=== PATIENT | male | born 1955 | race Caucasian/White ===

== ENCOUNTER 2020-10-10 09:32 | Emergency (ER) | payer BC ==
[2020-10-10] MEDS ORDERED: Adenosine 6 MG/2 ML SDV ONE (09:47)
[2020-10-10] MEDS ORDERED: Adenosine 12 MG/4 ML SDV ONE (09:47)
[2020-10-10] MEDS ORDERED: Diltiazem 50 MG/10 ML SDV IVPUSH ONE ×2 (09:53→10:21)
--- NOTE | 2020-10-10 09:54 | EDM.PDOC ---
ED HPI GENERAL MEDICAL PROBLEM - General Chief Complaint: Cardiovascular Problem Stated Complaint: SOB Time Seen by Provider: 10/10/20 09:43 - History of Present Illness INITIAL COMMENTS - FREE TEXT/NARRATIVE: 65-year-old male presents the emergency room with shortness of breath. Patient has had intermittent bouts of shortness of breath however this episode has been going on for a couple of days. He really does not have any chest pain with this and has not noticed any palpitations. Interestingly when he was hooked up to the monitor he is in what appears to be a sinus tach rate in the 150s. Besides some mild shortness of breath is otherwise symptom-free is not having any nausea or vomiting. Patient is an ex-smoker he quit about 6 years ago at which time he had a 5 vessel bypass it is unclear if the patient had a he art attack. Patient is on multiple medications he is not sure what and he has not taken them for several months because his regular doctor will not refill them as the patient has not been in for a recent visit. Patient works 6 months out of the year and does not have insurance the other 6 months. 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 - Related Data Allergies Allergy/AdvReac Type Severity Reaction Status Date / Time No Known Allergies Allergy Verified 10/10/20 09:55 ED ROS GENERAL - Review of Systems Review Of Systems: See Below Constitutional: Reports: No Symptoms HEENT: Reports: No Symptoms Respiratory: Reports: Shortness of Breath Cardiovascular: Reports: Dyspnea on Exertion. Denies: Chest Pain, Palpitations Endocrine: Reports: No Symptoms GI/Abdominal: Reports: No Symptoms : Reports: No Symptoms Musculoskeletal: Reports: No Symptoms Skin: Reports: No Symptoms Neurological: Reports: No Symptoms Psychiatric: Reports: No Symptoms Hematologic/Lymphatic: Reports: No Symptoms ED EXAM, GENERAL - Physical Exam Exam: See Below Exam Limited By: No Limitations General Appearance: Alert, No Apparent Distress Head: Atraumatic, Normocephalic Neck: Normal Inspection, Supple, Non-Tender, Full Range of Motion Respiratory/Chest: No Respiratory Distress, Lungs Clear, Normal Breath Sounds Cardiovascular: No Edema, No Murmur, Tachycardia GI/Abdominal: Normal Bowel Sounds, Soft, Non-Tender Back Exam: Normal Inspection. No: CVA Tenderness (L), CVA Tenderness (R) Extremities: Normal Inspection, Normal Range of Motion, Non-Tender, No Pedal Edema Neurological: Alert, Oriented, Normal Cognition #1 Interpretation EKG Date: 10/10/20 Rhythm: Other (Sinus tachycardia) Rate (Beats/Min): 153 [place]: Normal P-Wave: Present QRS: RBBB ST-T: Other (Nondiagnostic changes secondary to tachycardia) QT: Normal Comparison: NA - No Prior EKG EKG Interpretation Comments: Abnormal #2 Interpretation EKG Date: 10/10/20 Rhythm: A-Flutter [place]: Normal P-Wave: Absent (F waves noted) QRS: RBBB ST-T: Normal QT: Normal Comparison: Change From Previous EKG EKG Interpretation Comments: Abnormal Course - Vital Signs Last Recorded V/S: Last Vital Signs Temp 36.2 C 10/10/20 09:40 Pulse 150 H 10/10/20 09:40 Resp 20 10/10/20 09:40 BP 144/101 H 10/10/20 09:40 Pulse Ox 93 L 10/10/20 09:40 - Orders/Labs/Meds Labs: Laboratory Tests 10/10/20 10/10/20 10/10/20 Range/Units 09:43 09:43 09:43 WBC 9.89 H (4.23-9.07) K/mm3 RBC 5.41 (4.63-6.08) M/mm3 Hgb 15.6 (13.7-17.5) gm/dl Hct 47.6 (40.1-51.0) % MCV 88.0 (79.0-92.2) fl MCH 28.8 (25.7-32.2) pg MCHC 32.8 (32.2-35.5) g/dl RDW Std Deviation 42.0 (35.1-43.9) fL Plt Count 294 (163-337) K/mm3 MPV 11.0 (9.4-12.3) fl Neut % (Auto) 71.7 H (34.0-67.9) % Lymph % (Auto) 17.4 L (21.8-53.1) % [place] % (Auto) 9.3 (5.3-12.2) % Eos % (Auto) 1.0 (0.8-7.0) Baso % (Auto) 0.4 (0.1-1.2) % Neut # (Auto) 7.09 H (1.78-5.38) K/mm3 Lymph # (Auto) 1.72 (1.32-3.57) K/mm3 [place] # (Auto) 0.92 H (0.30-0.82) K/mm3 Eos # (Auto) 0.10 (0.04-0.54) K/mm3 Baso # (Auto) 0.04 (0.01-0.08) K/mm3 PT 11.5 (9.7-12.0) SECONDS INR 1.08 APTT 24.5 (21.7-31.4) SECONDS D-Dimer, Quantitative (0.19-0.50) mg/L Sodium 139 (136-145) mEq/L Potassium 3.9 (3.5-5.1) mEq/L Chloride 104 (98-107) mEq/L Carbon Dioxide 23 (21-32) mEq/L Anion Gap 15.9 H (5-15) BUN 22 H (7-18) mg/dL Creatinine 1.0 (0.7-1.3) mg/dL Est Cr Clr Drug Dosing 67.94 mL/min Estimated GFR (MDRD) > 60 (>60) mL/min BUN/Creatinine Ratio 22.0 H (14-18) Glucose 283 H (70-99) mg/dL Calcium 8.9 (8.5-10.1) mg/dL Magnesium 1.8 (1.8-2.4) mg/dL Total Bilirubin 1.0 (0.2-1.0) mg/dL AST 34 (15-37) U/L ALT 35 (16-63) U/L Alkaline Phosphatase 88 (46-116) U/L Troponin I 0.137 H* (0.00-0.056) ng/mL Total Protein 7.0 (6.4-8.2) g/dl Albumin 3.4 (3.4-5.0) g/dl Globulin 3.6 gm/dL Albumin/Globulin Ratio 0.9 L (1-2) SARS-CoV-2 RNA (EVELIN) (NEGATIVE) 10/10/20 10/10/20 Range/Units 09:43 09:45 WBC (4.23-9.07) K/mm3 RBC (4.63-6.08) M/mm3 Hgb (13.7-17.5) gm/dl Hct (40.1-51.0) % MCV (79.0-92.2) fl MCH (25.7-32.2) pg MCHC (32.2-35.5) g/dl RDW Std Deviation (35.1-43.9) fL Plt Count (163-337) K/mm3 MPV (9.4-12.3) fl Neut % (Auto) (34.0-67.9) % Lymph % (Auto) (21.8-53.1) % [place] % (Auto) (5.3-12.2) % Eos % (Auto) (0.8-7.0) Baso % (Auto) (0.1-1.2) % Neut # (Auto) (1.78-5.38) K/mm3 Lymph # (Auto) (1.32-3.57) K/mm3 [place] # (Auto) (0.30-0.82) K/mm3 Eos # (Auto) (0.04-0.54) K/mm3 Baso # (Auto) (0.01-0.08) K/mm3 PT (9.7-12.0) SECONDS INR APTT (21.7-31.4) SECONDS D-Dimer, Quantitative 0.50 (0.19-0.50) mg/L Sodium (136-145) mEq/L Potassium (3.5-5.1) mEq/L Chloride (98-107) mEq/L Carbon Dioxide (21-32) mEq/L Anion Gap (5-15) BUN (7-18) mg/dL Creatinine (0.7-1.3) mg/dL Est Cr Clr Drug Dosing mL/min Estimated GFR (MDRD) (>60) mL/min BUN/Creatinine Ratio (14-18) Glucose (70-99) mg/dL Calcium (8.5-10.1) mg/dL Magnesium (1.8-2.4) mg/dL Total Bilirubin (0.2-1.0) mg/dL AST (15-37) U/L ALT (16-63) U/L Alkaline Phosphatase (46-116) U/L Troponin I (0.00-0.056) ng/mL Total Protein (6.4-8.2) g/dl Albumin (3.4-5.0) g/dl Globulin gm/dL Albumin/Globulin Ratio (1-2) SARS-CoV-2 RNA (EVELIN) Negative (NEGATIVE) Meds: Medications Discontinued Medications Generic Name Dose Route Start Last Admin Trade Name Stuart PRN Reason Stop Dose Admin Adenosine Confirm 10/10/20 09:47 10/10/20 09:55 Adenosine 6 Mg/2 Ml Sdv Administered 10/10/20 09:48 Not Given Dose 6 mg .ROUTE .STK-MED ONE Adenosine Confirm 10/10/20 09:47 10/10/20 09:55 Adenosine 12 Mg/4 Ml Sdv Administered 10/10/20 09:48 Not Given Dose 12 mg .ROUTE .STK-MED ONE Diltiazem HCl 10 mg 10/10/20 09:53 10/10/20 10:00 Diltiazem 50 Mg/10 Ml Sdv IVPUSH 10/10/20 09:54 10 mg ONETIME ONE Administration Diltiazem HCl 10 mg 10/10/20 10:21 10/10/20 10:31 Diltiazem 50 Mg/10 Ml Sdv IVPUSH 10/10/20 10:22 10 mg ONETIME ONE Administration Heparin Sodium (Porcine) 60 units 10/10/20 11:16 10/10/20 11:49 Heparin Sodium 5,000 Units/Ml Vial IVPUSH 10/10/20 11:17 Not Given .BOLUS ONE Heparin Sodium (Porcine) 4,000 units 10/10/20 11:36 10/10/20 11:47 Heparin Sodium 5,000 Units/Ml Vial IVPUSH 10/10/20 11:37 4,000 units .BOLUS ONE Administration Diltiazem HCl 100 mg/ Sodium 100 mls @ 5 mls/hr 10/10/20 10:30 10/10/20 10:35 Chloride IV 5 mg/hr TITRATE ANGELA 5 mls/hr Administration Protocol 5 MG/HR Lactated Ringer's 500 mls @ 500 mls/hr 10/10/20 11:11 10/10/20 11:54 Ringers, Lactated IV 10/10/20 12:10 Not Given .BOLUS ONE Lactated Ringer's 1,000 mls @ 100 mls/hr 10/10/20 11:30 10/10/20 11:47 Ringers, Lactated IV 100 mls/hr ASDIRECTED ANGELA Administration Heparin Sodium/Dextrose 25,000 units in 500 mls @ 25.191 mls/hr 10/10/20 11:30 10/10/20 11:47 Heparin 25,000 Units In D5w 500 Ml IV 12 units/kg/hr TITRATE ANGELA 25.191 mls/hr Administration Protocol 12 UNITS/KG/HR - Re-Assessments/Exams Free Text/Narrative Re-Assessment/Exam: 10/10/20 09:54 65-year-old male presents the emergency room with shortness of breath. No palpitations they brought him to the into the emergency room hooked up the monitor and found him to be in what looks like SVT rate 153 regular. After interviewing him and in doing exam I was an attempt adenosine however when I went back in before they gave the adenosine his rate had dropped to the 120s to 130s somewhat irregular it appears to be atrial flutter with variable conduction atrial rate approximately 300. 10/10/20 11:28 Patient's troponin came back elevated at 0.137 which is nearly 3 times her upper end of normal. I discussed with Dr. Ruiz, metabolic specialist at [facility] in [place]. He recommended starting heparin and admitting to the hospitalist service at [facility] anticipating transesophageal echo and cardioversion. Dr. Stevenson, the hospitalist is kind enough to accept the patient. Pending at this time is a D-dimer. Chest x-ray shows cardiomegaly and possible mass versus i nfiltrate in the right lower lobe. Departure - Departure Time of Disposition: 11:27 Disposition: DC/Tfer to Acute Hospital 02 Reason for Transfer *Q: Other Clinical Impression: Atrial flutter, Atrial flutter with rapid ventricular response, Elevated tropo gumaro Referrals: PCP,Not In Area [Primary Care Provider] - Forms: ED Department Discharge Sepsis Event Note (ED) - Focused Exam Vital Signs: Vital Signs Temp Pulse Resp BP Pulse Ox 10/10/20 09:40 36.2 C 150 H 20 144/101 H 93 L
[2020-10-10] MEDS ORDERED: Diltiazem 100 MG in Sodium Chloride 0.9% 100 ML IV SCH (10:30)
[2020-10-10] MEDS ORDERED: Lactated Ringers 500 ML IV ONE (11:11)
[2020-10-10] MEDS ORDERED: Heparin Sodium 5,000 Units/ML Vial IVPUSH ONE ×2 (11:16→11:36)
--- NOTE | 2020-10-10 11:28 | CR ---
Chest: Portable view of the chest was obtained. Barriers: No prior chest imaging is available. Heart is enlarged. Pulmonary vessels are increased. Lungs otherwise are clear. Bony structures are grossly intact. Prior sternotomy is noted. Impression: 1. Findings suspicious for mild CHF. Diagnostic code #3
[2020-10-10] MEDS ORDERED: Lactated Ringers 1,000 ML IV SCH (11:30)
[2020-10-10] MEDS ORDERED: Heparin Sodium/D5W 25,000 UNITS/500 ML BAG IV SCH (11:30)
== END 2020-10-10 14:22 ==
LOC: JD.ED 09:32
DX: I48.92 Unspecified atrial flutter (principal); R79.89 Other specified abnormal findings of blood chemistry; Z20.822 Contact with and (suspected) exposure to COVID-19
CPT/HCPCS: 36415; 71045; 80053; 83735; 84484; 85025; 85379; 85610; 85730; 87635; 96365; 96366; 96367; 96376; 99285; J1644; J3490; J7120; 93005; 93010; 99284; U0002